=== PATIENT | female | born 1950 | race Caucasian/White ===

== ENCOUNTER 2024-08-05 07:25 | Day surgery (SDC) | payer MEDICARE, OTHER, SELFPAY ==
[2024-07-30 15:34] VITALS: BMI 20.4
[2024-07-30 15:59] VITALS: BMI 26.3
--- NOTE | 2024-08-01 13:47 | HO.ANESPROP2 ---
Documented by User: Hannah Borges NP 08/01/24 13:47 HPI - Anesthesia Eval Consult details Narrative: 74yo F for Right Cataract Extraction IOL Insertion No previous cataract on record PMFSH Past Medical History Medical History Angiomyolipoma of right kidney History of nephrolithiasis Hx of osteomyelitis (~2011) Diverticulosis High cholesterol Cataracts, bilateral Surgical History Surgical History Hx of spinal surgery History of lumpectomy Hx of appendectomy Hx of colonoscopy H/O total hysterectomy with bilateral salpingo-oophorectomy (BSO) (~2000) Social History Social History Are you a primary grounds caretaker to a significant other at home: No Do you presently have visiting nurse or other home services: No Patient Tobacco Use Status: Never used Tobacco Use of substances other than those prescribed or required for medical reasons: No Have you been hit, kicked, punched, or otherwise hurt by someone within the past year? If so, by whom?: No Are you DNR?: No Advance Directives: No Advance Directives Information Provided: Yes Recently lost weight without trying: No Nutrition Risks: No Nutritional Risk Patient : No Meds Allergies Allergy/AdvReac Type Severity Reaction Status Date / Time ceftriaxone Allergy Rash Verified 08/05/24 08:22 sulfamethoxazole Allergy Rash Verified 08/05/24 08:22 [From Sulfamethoxazole-Trimethoprim] trimethoprim Allergy Rash Verified 08/05/24 08:22 [From Sulfamethoxazole-Trimethoprim] Home Medications ?Medication ?Instructions ?Recorded ?Confirmed ?Last Taken ?Type pravastatin 20 mg tablet 20 mg PO DAILY 07/30/24 08/05/24 08/04/24 History Exam Height,Weight and Vital Signs: Height 5 ft 4 in Weight 69.4 kg Assessment and Plan Assessment Anesthesia Assessment: Chart Reviewed Documented by User: Heidy Hammond MD 08/05/24 08:40 PMFSH Past Medical History Medical History Angiomyolipoma of right kidney History of nephrolithiasis Hx of osteomyelitis (~2011) Diverticulosis High cholesterol Cataracts, bilateral Surgical History Surgical History Hx of spinal surgery History of lumpectomy Hx of appendectomy Hx of colonoscopy H/O total hysterectomy with bilateral salpingo-oophorectomy (BSO) (~2000) History of Problems with Anesthesia: No Social History Social History Are you a primary grounds caretaker to a significant other at home: No Do you presently have visiting nurse or other home services: No Patient Tobacco Use Status: Never used Tobacco Use of substances other than those prescribed or required for medical reasons: No Have you been hit, kicked, punched, or otherwise hurt by someone within the past year? If so, by whom?: No Are you DNR?: No Advance Directives: No Advance Directives Information Provided: Yes Recently lost weight without trying: No Nutrition Risks: No Nutritional Risk Patient : No Meds Allergies Allergy/AdvReac Type Severity Reaction Status Date / Time ceftriaxone Allergy Rash Verified 08/05/24 08:22 sulfamethoxazole Allergy Rash Verified 08/05/24 08:22 [From Sulfamethoxazole-Trimethoprim] trimethoprim Allergy Rash Verified 08/05/24 08:22 [From Sulfamethoxazole-Trimethoprim] Home Medications ?Medication ?Instructions ?Recorded ?Confirmed ?Last Taken ?Type pravastatin 20 mg tablet 20 mg PO DAILY 07/30/24 08/05/24 08/04/24 History Exam Airway Mallampati Class: II (implant left upper incisor) TM Dist: >3cm Neck ROM: Full Loose/Missing/Broken Teeth: No Heart: RRR Lungs: CTA Assessment and Plan Assessment Anesthesia Assessment: Anesthesia Plan Discussed Final Anesthetic Review History of Problems with Anesthesia: No NPO: Yes ASA Class: II Final Preanesthetic Review: Meds/Allgs Chart Reviewed, Consent Obtained/Reviewed and Anes Risks/Benef Reviewed Patient Risk: Low Procedure Risk: Low Anesthetic Plan Anesthetic Plan: MAC: Disposition: Standard PACU
[2024-08-05] MEDS: Tetracaine HCl/PF 0.5% Oph Sol 4 ML DROPS 1 DROP EYE-RIGHT (08:05)
[2024-08-05] MEDS: Lactated Ringers 500 ML 50 ML IV (08:05)
[2024-08-05] MEDS: Cyclopentolate 1 % Ophth Sol 2 ML DRPBTL 1 DROP EYE-RIGHT ×3 (08:06→08:23)
[2024-08-05] MEDS: Tropicamide 1 % Ophth Sol 3 ML BTL 1 DROP EYE-RIGHT ×3 (08:08→08:25)
[2024-08-05] MEDS: Ketorolac Tromethamine 0.5% Op 10 ML DROPS 1 DROP EYE-RIGHT ×3 (08:10→08:27)
[2024-08-05] MEDS: Phenylephrine HCL 2.5% Oph SoL 2 ML BOTTLE 1 DROP EYE-RIGHT ×3 (08:12→08:29)
[2024-08-05 08:30] VITALS: BP 157/66; PULSE 79; RESP 14; TEMP 36; O2SAT 96; BMI 26.6
--- NOTE | 2024-08-05 10:31 | MHC.SHP ---
Pre-Procedural Eval Section A - 24 Hr Update-Section A only Date of Service: 08/05/24 The patient is an INPATIENT: No Changes since office visit: No Cold of Flu in the past 2 weeks, No New Medical Problems, No Changes in Medication and No Patient answered all questions The patient has been examined within 24 hours of the surgical procedure. The History & Physical has been completed within 30 days and I have reviewed it.: Yes Section B - Complete if H&P > 30 days Chief Complaint: Age-related nuclear cataract, right eye Allergies: Allergies Allergy/AdvReac Type Severity Reaction Status Date / Time ceftriaxone Allergy Rash Verified 08/05/24 08:22 sulfamethoxazole Allergy Rash Verified 08/05/24 08:22 [From Sulfamethoxazole-Trimethoprim] trimethoprim Allergy Rash Verified 08/05/24 08:22 [From Sulfamethoxazole-Trimethoprim] Plan Diagnosis/Plan: Unchanged I have reviewed the history and physical and performed a pertinent physical examination on my patient. No changes have occurred unless specified. Time Spent With Patient Time: Total time managing care of this patient today ____ minutes.
--- NOTE | 2024-08-05 10:32 | P.PCNO_ITS ---
Ophthalmology Procedure Procedure Date of Service: 08/05/24 Ophthalmology Viscoelastic: Healon Duet Dual Pack Pro Ophthalmology Lenses: IOL Acrysof MP - MA60AC (27.5) Procedure Notes: PREOPERATIVE DIAGNOSIS: Decreased visual acuity right eye secondary to cataract POSTOPERATIVE DIAGNOSIS: Same PROCEDURE: Right cataract extraction with intraocular lens insertion SURGEON: Lenin Anne M.D. ANESTHESIA: Topical/MAC ESTIMATED BLOOD LOSS: None COMPLICATIONS: None After obtaining informed consent, the patient was brought to the operating room suite and placed in the supine position. After adequate sedation per anesthesia, topical drops of Tetracaine were given to the right eye. The eye was then prepped and draped in the usual sterile fashion. The operating room microscope was then positioned over the operative eye and a lid speculum placed. A paracentesis was created. Viscoelastic was then instilled into the anterior chamber. A three plane incision was then created temporally, utilizing a 2.85 mm keratome. Capsulotomy forceps were then utilized to create a circular tear capsulotomy. Hydrodissection and hydrodelineation were carried out until adequate mobilization of the nucleus occurred. Phacoemulsification was then utilized to remove the dense central nu cleus followed by removal of the cortical material utilizing the automated aspiration irrigation unit. Viscoelastic was instilled into the posterior capsular bag followed by placement of a posterior chamber intraocular lens without difficulty. The residual Viscoelastic was then removed utilizing the automated IA machine. The wound was checked and found to be watertight. The patient tolerated the procedure well and the lid speculum was removed. Intracameral injection of Vigamox 0.1 mL followed by a subtenon injection of Kenalog-40 0.2 mL were administered. The patient will be seen in the a.m.
[2024-08-05 11:03] VITALS: BP 153/71; PULSE 80; RESP 18; TEMP 36.1; O2SAT 98
== END 2024-08-05 11:10 | disposition home or self-care (01) ==
PROVIDERS: Visit Provider Ophthalmology
PROC: (CPT 66985; principal; 2024-08-05 09:20)
DX: H25.11 Age-related nuclear cataract, right eye (principal); H52.4 Presbyopia; Z83.511 Family history of glaucoma; H43.393 Other vitreous opacities, bilateral; H35.433 Paving stone degeneration of retina, bilateral; H18.413 Arcus senilis, bilateral; E78.00 Pure hypercholesterolemia, unspecified; Z79.899 Other long term (current) drug therapy; Z88.1 Allergy status to other antibiotic agents; Z88.2 Allergy status to sulfonamides
CPT/HCPCS: 66984; J2250; J3010; J3301; V2630

== ENCOUNTER 2024-08-19 08:39 | Day surgery (SDC) | payer MEDICARE, OTHER, SELFPAY ==
[2024-07-30 15:36] VITALS: BMI 20.4
[2024-07-30 16:02] VITALS: BMI 27.1
--- NOTE | 2024-08-15 13:46 | P.CONAN_ITS ---
Documented by User: Hannah Borges NP 08/15/24 13:47 HPI - Anesthesia Eval Consult details Narrative: 74yo F for Left Cataract Extraction IOL Insertion Right cataract 08/05/24: Fent 48, Midaz 2 PMFSH Past Medical History Medical History Angiomyolipoma of right kidney History of nephrolithiasis Hx of osteomyelitis (~2011) Diverticulosis High cholesterol Cataracts, bilateral Surgical History Surgical History Hx of spinal surgery History of lumpectomy Hx of appendectomy Hx of colonoscopy H/O total hysterectomy with bilateral salpingo-oophorectomy (BSO) (~2000) History of Problems with Anesthesia: No Social History Social History Are you a primary child care lead teacher to a significant other at home: No Do you presently have visiting nurse or other home services: No Patient Tobacco Use Status: Never used Tobacco Advance Directives: No Advance Directives Information Provided: Yes Meds Allergies Allergy/AdvReac Type Severity Reaction Status Date / Time ceftriaxone Allergy Rash Verified 08/19/24 10:23 sulfamethoxazole Allergy Rash Verified 08/19/24 10:23 [From Sulfamethoxazole-Trimethoprim] trimethoprim Allergy Rash Verified 08/19/24 10:23 [From Sulfamethoxazole-Trimethoprim] Home Medications ?Medication ?Instructions ?Recorded ?Confirmed ?Last Taken ?Type pravastatin 20 mg tablet 20 mg PO DAILY 07/30/24 08/05/24 08/04/24 History Exam Height,Weight and Vital Signs: Height 5 ft 3 in Weight 69.4 kg Assessment and Plan Assessment Anesthesia Assessment: Chart Reviewed Final Anesthetic Review History of Problems with Anesthesia: No Documented by User: Princess Agudelo MD 08/19/24 10:53 PMFSH Past Medical History Medical History Angiomyolipoma of right kidney History of nephrolithiasis Hx of osteomyelitis (~2011) Diverticulosis High cholesterol Cataracts, bilateral Family History Family history of problems with anesthesia: No Surgical History Surgical History Hx of spinal surgery History of lumpectomy Hx of appendectomy Hx of colonoscopy H/O total hysterectomy with bilateral salpingo-oophorectomy (BSO) (~2000) Social History Social History Are you a primary child care lead teacher to a significant other at home: No Do you presently have visiting nurse or other home services: No Patient Tobacco Use Status: Never used Tobacco Advance Directives: No Advance Directives Information Provided: Yes Meds Allergies Allergy/AdvReac Type Severity Reaction Status Date / Time ceftriaxone Allergy Rash Verified 08/19/24 10:23 sulfamethoxazole Allergy Rash Verified 08/19/24 10:23 [From Sulfamethoxazole-Trimethoprim] trimethoprim Allergy Rash Verified 08/19/24 10:23 [From Sulfamethoxazole-Trimethoprim] Home Medications ?Medication ?Instructions ?Recorded ?Confirmed ?Last Taken ?Type pravastatin 20 mg tablet 20 mg PO DAILY 07/30/24 08/05/24 08/04/24 History Exam Airway Mallampati Class: II TM Dist: >3cm Neck ROM: Full Heart: rrr Lungs: cta Assessment and Plan Final Anesthetic Review Family History of Problems with Anesthesia: No NPO: Yes ASA Class: II Final Preanesthetic Review: No Changes in Pt Med Stat, Meds/Allgs Chart Reviewed, Consent Obtained/Reviewed and Anes Risks/Benef Reviewed Patient Risk: Low Procedure Risk: Low Anesthetic Plan Anesthetic Plan: MAC: Disposition: Standard PACU
[2024-08-19 10:23] VITALS: BP 140/68; PULSE 81; RESP 15; TEMP 36.5; O2SAT 96
[2024-08-19] MEDS: Tetracaine HCl/PF 0.5% Oph Sol 4 ML DROPS 1 DROP EYE-LEFT (10:27)
[2024-08-19] MEDS: Cyclopentolate 1 % Ophth Sol 2 ML DRPBTL 1 DROP EYE-LEFT ×3 (10:31→10:46)
[2024-08-19] MEDS: Tropicamide 1 % Ophth Sol 3 ML BTL 1 DROP EYE-LEFT ×3 (10:33→10:47)
[2024-08-19] MEDS: Ketorolac Tromethamine 0.5% Op 10 ML DROPS 1 DROP EYE-LEFT ×3 (10:35→10:48)
[2024-08-19] MEDS: Phenylephrine HCL 2.5% Oph SoL 2 ML BOTTLE 1 DROP EYE-LEFT ×3 (10:37→10:50)
[2024-08-19] MEDS: Lactated Ringers 500 ML 50 ML IV (10:45)
--- NOTE | 2024-08-19 11:15 | MHC.SHP ---
Pre-Procedural Eval Section A - 24 Hr Update-Section A only Date of Service: 08/19/24 The patient is an INPATIENT: No Changes since office visit: No Cold of Flu in the past 2 weeks, No New Medical Problems, No Changes in Medication and No Patient answered all questions The patient has been examined within 24 hours of the surgical procedure. The History & Physical has been completed within 30 days and I have reviewed it.: Yes Section B - Complete if H&P > 30 days Chief Complaint: Age-related nuclear cataract, left eye Allergies: Allergies Allergy/AdvReac Type Severity Reaction Status Date / Time ceftriaxone Allergy Rash Verified 08/19/24 10:23 sulfamethoxazole Allergy Rash Verified 08/19/24 10:23 [From Sulfamethoxazole-Trimethoprim] trimethoprim Allergy Rash Verified 08/19/24 10:23 [From Sulfamethoxazole-Trimethoprim] Plan Diagnosis/Plan: Unchanged I have reviewed the history and physical and performed a pertinent physical examination on my patient. No changes have occurred unless specified. Time Spent With Patient Time: Total time managing care of this patient today ____ minutes.
--- NOTE | 2024-08-19 11:15 | HO.PNOPHT ---
Ophthalmology Procedure Procedure Date of Service: 08/19/24 Ophthalmology Viscoelastic: Healon Duet Dual Pack Pro Ophthalmology Lenses: IOL Acrysof MP - MA60AC (24.5) Procedure Notes: PREOPERATIVE DIAGNOSIS: Decreased visual acuity left eye secondary to cataract POSTOPERATIVE DIAGNOSIS: Same PROCEDURE: Left cataract extraction with intraocular lens insertion SURGEON: Lenin Anne M.D. ANESTHESIA: Topical/MAC ESTIMATED BLOOD LOSS: None COMPLICATIONS: None After obtaining informed consent, the patient was brought to the operation room suite and placed in the supine position. After adequate sedation per anesthesia, topical drops of Tetracaine were given to the left eye. The eye was then prepped and draped in the usual sterile fashion. The operating room microscope was then positioned over the operative eye and a lid speculum placed. A paracentesis was created. Viscoelastic was then instilled into the anterior chamber. A three plane incision was then created temporally, utilizing a 2.85 mm keratome. Capsulotomy forceps were then utilized to create a circular tear capsulotomy. Hydrodissection and hydrodelineation were carried out until adequate mobilization of the nucleus occurred. Phacoemulsification was then utilized to remove the dense central nucleus followed by removal of the cortical material utilizing the automated aspiration irrigation unit. Viscoat elastic was instilled into the posterior capsular bag followed by placement of a posterior chamber intraocular lens without difficulty. The residual Viscoat elastic was then removed utilizing the automated IA machine. The wound was check and found to be watertight. The patient tolerated the procedure well and the lid speculum was removed. Intracameral injection of Vigamox 0.1 mL followed by a subtenon injection of Kenalog-40 0.2 mL were administered. The patient will be seen in the a.m.
[2024-08-19 11:50] VITALS: BP 139/82; PULSE 80; RESP 16; TEMP 36.3; O2SAT 97
== END 2024-08-19 12:00 | disposition home or self-care (01) ==
PROVIDERS: Visit Provider Ophthalmology
PROC: (CPT 66985; principal; 2024-08-19 11:30)
DX: H25.12 Age-related nuclear cataract, left eye (principal); H52.4 Presbyopia; Z83.511 Family history of glaucoma; H43.393 Other vitreous opacities, bilateral; H35.433 Paving stone degeneration of retina, bilateral; H18.413 Arcus senilis, bilateral; Z79.899 Other long term (current) drug therapy; Z88.2 Allergy status to sulfonamides
CPT/HCPCS: 66984; J2250; J3301; V2630

== ENCOUNTER 2025-02-10 11:16 | Outpatient (REF) | payer MEDICARE, OTHER, SELFPAY ==
[2025-02-10 11:22] VITALS: BP 174/80; PULSE 82; RESP 16; TEMP 36.1; O2SAT 97; BMI 27.1
== END 2025-02-10 11:17 | disposition home or self-care (01) ==
LOC: HO.MS 11:16
PROVIDERS: PCP Physician Assistant Medical; Visit Provider Ophthalmology
PROC: (CPT 66821; principal; 2025-02-10 13:10)
DX: H26.492 Other secondary cataract, left eye (principal)
CPT/HCPCS: 66821